=== PATIENT | male | born 1980 | race African-American/Black ===

== ENCOUNTER 2023-07-05 14:42 | Emergency (ER) | payer SELFPAY ==
[~2023-07-05] VITALS: Ht 172.7 cm; Wt 75.2 kg
[2023-07-05 15:01] VITALS: BP 105/76; TEMP 97.8
[2023-07-05] MEDS ORDERED: ipratropium/albuterol 3ml nebule NEB PRN (15:10)
[2023-07-05 15:13] LABS: BASOPHILS % (AUTO) 0.7 % (0-1); EOSINOPHILS # (AUTO) 0.5 X10'3 (0-0.9); LYMPHOCYTES # (AUTO) 1.7 X10'3 (1.1-4.8); NEUTROPHILS # (AUTO) 1.6 X10'3 (1.8-7.7); RED BLOOD COUNT 4.93 X10'6 (4.70-6.10)
[2023-07-05 15:14] LABS: EOSINOPHILS % (AUTO) 11.6 % (0-6); HEMATOCRIT 44.4 % (42.0-52.0); HEMOGLOBIN 15.1 g/dl (14.0-17.9); LYMPHOCYTES % (AUTO) 39.3 % (21-51); MEAN CORPUSCULAR HEMOGLOBIN 30.6 PG (27.0-31.0); MONOCYTES # (AUTO) 0.5 X10'3 (0-0.9); NEUTROPHILS % (AUTO) 36.4 % (42-75); PLATELET COUNT 317 X10'3 (140-440); RED CELL DISTRIBUTION WIDTH 14.4 % (11.5-14.5); WHITE BLOOD COUNT 4.4 X10'3 (4.5-11.0)
[2023-07-05] MEDS ORDERED: prednisone 10mg tablet PO SCH (15:15)
[2023-07-05 15:19] LABS: ALANINE AMINOTRANSFERASE 26 U/L (12-78); ALBUMIN 3.8 G/DL (3.4-5.0); ALKALINE PHOSPHATASE 86 IU/L (46-116); ANION GAP 5 (8-16); ASPARTATE AMINO TRANSFERASE 25 U/L (10-37); BILIRUBIN,TOTAL 0.5 MG/DL (0.1-1.0); BLOOD UREA NITROGEN 10 MG/DL (7-18); BUN/CREATININE RATIO 12.3 (10.0-20.0); CALCIUM 8.9 MG/DL (8.5-10.1); CHLORIDE 101 MMOL/L (99-107); CREATININE 0.81 MG/DL (0.60-1.10); GLUCOSE 143 MG/DL (70-104); SODIUM 139 MMOL/L (135-145); TOTAL CARBON DIOXIDE 32.9 MMOL/L (24-32); TOTAL PROTEIN 7.5 G/DL (6.4-8.2); eCRCL 116 ML/MIN; eGFR > 90 ML/MIN
[2023-07-05 15:26] LABS: PRO BRAIN NATRIURETIC PEPTIDE 53 PG/ML (0-125)
[2023-07-05] MEDS ORDERED: DOXY100C2 PO (15:35)
[2023-07-05] MEDS ORDERED: ALBU18HF2 INH (15:35)
[2023-07-05] MEDS ORDERED: PRED20TA PO (15:35)
[2023-07-05 15:48] VITALS: PULSE 100; PULSE 87; RESP 14; RESP 16; O2SAT 94; O2SAT 95
--- NOTE | 2023-07-05 16:49 | NUR ---
PT IS REFUSING HIS LAB DRAW FOR HIS 2ND TROP LEVEL. KIEL
[2023-07-05 17:23] VITALS: RESP 17
[2023-07-06] MEDS ORDERED: prednisone 10mg tablet PO SCH (08:30)
== END 2023-07-05 17:40 | disposition home or self-care (01) ==
LOC: ER 14:44
DX: J45.901 Unspecified asthma with (acute) exacerbation (principal); F15.90 Other stimulant use, unspecified, uncomplicated; Z79.899 Other long term (current) drug therapy; Z79.2 Long term (current) use of antibiotics
CPT/HCPCS: 80053; 83880; 84484; 85025; 93005; 94640; 99284; J7512; 94760

== ENCOUNTER 2023-07-24 14:40 | Emergency (ER) | payer SELFPAY ==
[~2023-07-24] VITALS: Ht 170.2 cm; Wt 60.1 kg
[~2023-07-24 14:40] MED LIST: ALBU18HF2 INH; DOXY100C2 PO
[2023-07-24 15:37] VITALS: BP 108/77; PULSE 92; RESP 22; TEMP 97.8; O2SAT 98
[2023-07-24] MEDS ORDERED: PRED50TA PO (23:31)
[2023-07-24] MEDS ORDERED: ALBU8HFA PO (23:31)
== END 2023-07-24 20:53 | disposition left against medical advice (07) ==
LOC: ER 14:41
DX: J45.909 Unspecified asthma, uncomplicated (principal); Z53.21 Procedure and treatment not carried out due to patient leaving prior to being seen by health care provider
CPT/HCPCS: 99281

== ENCOUNTER 2023-07-24 21:05 | Emergency (ER) | payer SELFPAY ==
[~2023-07-24] VITALS: Ht 170.2 cm; Wt 60.0 kg
[2023-07-24 21:21] VITALS: BP 111/63; TEMP 98
[2023-07-24] MEDS ORDERED: ipratropium/albuterol 3ml nebule NEB ONE (22:00)
[2023-07-24] MEDS ORDERED: predniSONE 20 mg tablet PO ONE (22:00)
[2023-07-24 22:37] VITALS: PULSE 86; RESP 16; O2SAT 95
[2023-07-24 22:44] VITALS: PULSE 86; RESP 18; O2SAT 100
[2023-07-24] MEDS ORDERED: ALBU8HFA PO (23:31)
[2023-07-24] MEDS ORDERED: PRED50TA PO (23:31)
== END 2023-07-24 23:41 | disposition home or self-care (01) ==
LOC: ER 21:06
DX: J45.901 Unspecified asthma with (acute) exacerbation (principal); F15.10 Other stimulant abuse, uncomplicated; Z79.899 Other long term (current) drug therapy
CPT/HCPCS: 71045; 94640; 99283; J7512; 94760

== ENCOUNTER 2023-08-02 05:55 | Emergency (ER) | payer SELFPAY ==
[~2023-08-02 05:55] MED LIST changes: +ALBU8HFA PO; -DOXY100C2 PO; +PRED50TA PO
--- NOTE | 2023-08-02 06:07 | NUR ---
while getting pt weight, pt picked up paperclip off floor next to scale and stepped up on scale. pt then sat in triage chair to begin triage questions and started to unfold paperclip into pointy device. pt asked to give back paperclip as he picked it up off our ground. pt declined and placed in pocket. advised pt that we are not allowed to have sharp pointy objects in the department for everyones safety and to hand it over to this RN. pt declined again. pt advised that security would be called if object not handed over and pt declined. security called and pt declined to hand over object to them either and stated "nah, ill just leave then". pt ambulated out of lobby with even, steady gait with paperclip in hand. spontaneous respirations even and unlabored speaking in full sentences. was unable to begin triage questions. pt escorted out of lobby with security officers. admission discharge rnrigoberto shay notified.
== END 2023-08-02 06:57 | disposition left against medical advice (07) ==
LOC: ER 05:55
DX: J02.9 Acute pharyngitis, unspecified (principal); Z53.21 Procedure and treatment not carried out due to patient leaving prior to being seen by health care provider

== ENCOUNTER 2023-09-15 18:32 | Emergency (ER) | payer MEDICARE ==
[~2023-09-15] VITALS: Ht 170.2 cm; Wt 61.0 kg
[~2023-09-15 18:32] MED LIST changes: -ALBU8HFA PO
[2023-09-15] MEDS ORDERED: albuterol 2.5 MG/3 ML nebule NEB ONE (18:50)
[2023-09-15] MEDS ORDERED: ipratropium 0.5 MG/2.5ML nebule IH ONE (18:50)
[2023-09-15 19:06] VITALS: BP 114/66
[2023-09-15 19:13] VITALS: PULSE 114; RESP 16; O2SAT 94
[2023-09-15 19:24] VITALS: PULSE 101; RESP 16; O2SAT 97
[2023-09-15] MEDS ORDERED: PRED20TA PO (19:33)
[2023-09-15] MEDS ORDERED: ALBU8HFA PO (19:33)
[2023-09-15] MEDS ORDERED: predniSONE 20 mg tablet PO ONE (19:35)
[2023-09-15 21:06] VITALS: PULSE 100; RESP 18; TEMP 98.6; O2SAT 97
== END 2023-09-15 21:08 | disposition home or self-care (01) ==
LOC: ER 18:32
DX: J45.901 Unspecified asthma with (acute) exacerbation (principal); F15.90 Other stimulant use, unspecified, uncomplicated; Z98.890 Other specified postprocedural states; Z79.899 Other long term (current) drug therapy
CPT/HCPCS: 71045; 94640; 99284; J7512; 94760

== ENCOUNTER 2023-09-25 19:15 | Emergency (ER) | payer MEDICARE ==
[~2023-09-25] VITALS: Ht 167.6 cm; Wt 63.2 kg
[~2023-09-25 19:15] MED LIST changes: +ALBU8HFA PO; +PRED20TA PO
[2023-09-25 19:17] VITALS: TEMP 97.9
[2023-09-25] MEDS ORDERED: albuterol 2.5 MG/3 ML nebule NEB ONE (19:20)
[2023-09-25 20:01] VITALS: PULSE 101; RESP 24; O2SAT 96
[2023-09-25 20:04] VITALS: PULSE 93; RESP 16
[2023-09-25] MEDS: dexamethasone sod phosphate 10mg/ml inj IV STA ×2 (20:21→20:23)
[2023-09-25] MEDS ORDERED: PRED20TA PO (21:51)
[2023-09-25 21:59] VITALS: BP 125/80; PULSE 89; RESP 16; O2SAT 95
== END 2023-09-25 22:10 | disposition home or self-care (01) ==
LOC: ER 19:16
DX: J45.901 Unspecified asthma with (acute) exacerbation (principal); F15.90 Other stimulant use, unspecified, uncomplicated
CPT/HCPCS: 71045; 93005; 94640; 94760; 99283; J1100